=== PATIENT | female | born 1945 ===

== ENCOUNTER 2017-05-30 18:03 | Emergency (ER) | payer MEDICARE, OTHER, BC ==
[2017-05-30 18:11] VITALS: BP 155/87; PULSE 69; RESP 16; TEMP 98; O2SAT 97
--- NOTE | 2017-05-30 18:56 | ED PDOC ---
HPI: Headache Time Seen by Provider: 05/30/17 18:18 Chief Complaint (Nursing): Headache Chief Complaint (Provider): Headache History Per: Patient History/Exam Limitations: no limitations Current Symptoms Are (Timing): Constant Associated Symptoms: denies: Blurred Vision, Nausea, Vomiting Additional History Per: Family Additional Complaint(s): 72 year old female presents to ED with complaints of atraumatic headache x3 days and has a past medical history of HTN, DM, hypercholesterolemia, and hypothyroidism. Localizes pain to the right side of the head and states that it has been constant with no relief by means of Motrin. (-) nausea, vomiting, blurry vision, fever, chills, neck pain, or focal weakness. Accompanying family member states patient has been feeling depressed and stressed, as it was the first anniversary of the of the patient's only son 3 months ago. PCP: Dr. Jayme Bynum Past Medical History Reviewed: Historical Data, Nursing Documentation, Vital Signs Vital Signs: Last Vital Signs Temp 98.0 F 05/30/17 18:11 Pulse 69 05/30/17 18:11 Resp 16 05/30/17 18:11 BP 155/87 H 05/30/17 18:11 Pulse Ox 97 05/30/17 18:11 - Medical History PMH: Diabetes, HTN, Hypercholesterolemia - Surgical History Surgical History: Denies: No Surg Hx Other surgeries: right knee surgery, hysterectomy - Family History Family History: States: No Known Family Hx - Social History Current smoker - smoking cessation education provided: No Ex-Smoker (has not smoked in the last 12 months): No Alcohol: None Drugs: Denies - Home Medications Home Medications: Ambulatory Orders Medication Instructions Recorded Alendronate Sodium [Fosamax] 35 mg PO SUN 12/25/13 Carvedilol 12.5 mg PO BID 12/25/13 Ergocalciferol (Vitamin D2) 50,000 iu PO SUN 12/25/13 [Vitamin D2] Fluticasone Nasal [Flonase] 1 spr NS DAILY 12/25/13 Meclizine Hydrochloride [Meclizine] 50 mg PO BID PRN #30 tab 12/25/13 Ondansetron [Zofran] 4 mg PO Q8H PRN #30 tab 12/25/13 Pravastatin Sodium [Pravastatin] 40 mg PO HS 12/25/13 SITagliptin [Januvia] 100 mg PO DAILY 12/25/13 Oseltamivir [Tamiflu] 75 mg PO BID #10 cap 03/21/16 Acetaminophen [Tylenol Extra 1,000 mg PO Q6 PRN #100 tablet 05/30/17 Strength] Cyclobenzaprine [Flexeril] 5 mg PO Q8 PRN #15 tab 05/30/17 - Allergies Allergies/Adverse Reactions: Allergies Allergy/AdvReac Type Severity Reaction Status Date / Time Penicillins Allergy RASH Verified 03/21/16 19:18 Review of Systems ROS Statement: Except As Marked, All Systems Reviewed And Found Negative Constitutional: Negative for: Fever, Chills Eyes: Negative for: Vision Change Gastrointestinal: Negative for: Nausea, Vomiting Musculoskeletal: Negative for: Neck Pain Neurological: Negative for: Weakness Psych: Positive for: Depression (as per family member) Physical Exam - Reviewed Nursing Documentation Reviewed: Yes Vital Signs Reviewed: Yes - Physical Exam Appears: Positive for: Uncomfortable (mild painful distress) Head Exam: Positive for: ATRAUMATIC, NORMOCEPHALIC Skin: Positive for: Warm, Dry Eye Exam: Positive for: EOMI, PERRL ENT: Negative for: Pharyngeal Erythema, Tonsillar Exudate Neck: Positive for: Painless ROM, Supple Cardiovascular/Chest: Positive for: Regular Rate, Rhythm, Chest Non Tender. Negative for: Murmur Respiratory: Positive for: Normal Breath Sounds. Negative for: Respiratory Distress Gastrointestinal/Abdominal: Positive for: Soft. Negative for: Tenderness Back: Positive for: Normal Inspection. Negative for: Decreased ROM Extremity: Positive for: Normal ROM. Negative for: Deformity Lymphatic: Negative for: Adenopathy Neurologic/Psych: Positive for: Alert, skein yarn dyer II-XII (intact), Oriented (x3), Cerebellar Tests (normal FTN). Negative for: Motor/Sensory Deficits, Aphasia, Facial Droop - Laboratory Results Result Diagrams: 05/30/17 18:56 05/30/17 18:56 - ECG O2 Sat by Pulse Oximetry: 97 (RA) Pulse Ox Interpretation: Normal Medical Decision Making Medical Decision Makin Initial impression: headache DDx including but not limited to: tension headache, temporal arteritis, intracranial mass, hypertensive encephalopathy, migraine, electrolyte abnormality, or stress Initial plan: * T&S * CT HEAD * Labs * CRP, high sensitivity * Magnesium * Phosphorus * UDip * Erythrocyte Sedimentation Rte * PTT/PT * Acetaminophen 975mg PO * Re-eval 2051 CT HEAD FINDINGS Brain: Areas of decreased attenuation noted within the periventricular and subcortical white matter likely related to chronic microangiopathic ischemic changes given the patient's stated age.Streak artifact limits evaluation of the skull base. No evidence of acute intracranial hemorrhage. Correlate clinically. There is mild diffuse cerebral atrophy present, consistent with this patient's age. Ventricles: Unremarkable. No ventriculomegaly. Bones/joints: See above. Soft tissues: Unremarkable. Vasculature: Atherosclerotic calcifications of the carotid siphons. Sinuses: Unremarkable as visualized. No acute sinusitis. Mastoid air cells: Unremarkable as visualized. No mastoid effusion. IMPRESSION: Streak artifact limits evaluation of the skull base. No evidence of acute intracranial hemorrhage. Correlate clinically. Labs reviewed: no clinically significant abnormalities. Patient is stable for discharge home and was advised to follow up with PCP in 2-3 days. Return precautions discussed with patient. Scribe Attestation: Documented by Sania Roberts acting as a scribe for Padmini Guidry MD. Scribe Attestation: All medical record entries made by the Scribe were at my direction and personally dictated by me. I have reviewed the chart and agree that the record accurately reflects my personal performance of the history, physical exam, medical decision making, and the department course for this patient. I have also personally directed, reviewed, and agree with the discharge instructions and disposition. Disposition - Clinical Impression Clinical Impression: Headache Counseled Patient/Family Regarding: Studies Performed, Diagnosis, Need For Followup, Rx Given - Disposition Referrals: Gino Bynum MD [Family Provider] - 06/02/17 ([facility] [facility] 2- [facility]) Disposition: Routine/Home Disposition Time: 21:19 Condition: IMPROVED Prescriptions: Acetaminophen [Tylenol Extra Strength] 1,000 mg PO Q6 PRN #100 tablet PRN Reason: FEVER OR PAIN Cyclobenzaprine [Flexeril] 5 mg PO Q8 PRN #15 tab PRN Reason: Tension Instructions: Headache, Adult (DC) Print Language: TAMAZIGHT
[2017-05-30 19:00] LABS: BASO # 0.1 K/uL (0.0-0.2); BASO % 0.9 % (0.0-2.0); EOS # 0.1 K/uL (0.0-0.7); EOS % 1.4 % (0.0-4.0); HEMOGLOBIN 12.4 g/dL (12.0-16.0); LYMPH # 2.8 K/uL (1.0-4.3); LYMPH % 35.5 % (20.0-40.0); MEAN CORPUSCULAR HEMOGLOBIN 31.2 pg (27.0-31.0); MEAN CORPUSCULAR HGB CONC 33.6 g/dL (33.0-37.0); MEAN PLATELET VOLUME 8.7 fl (7.2-11.7); MONO # 0.6 K/uL (0.0-0.8); MONO % 7.5 % (0.0-10.0); NEUT # 4.3 K/uL (1.8-7.0); NEUT % 54.7 % (50.0-75.0); NRBC % 0.1 % (0.0-0.0); RBC 3.97 Mil/uL (3.80-5.20); RED CELL DISTRIBUTION WIDTH 14.1 % (11.5-14.5); WHITE BLOOD COUNT 7.9 K/uL (4.8-10.8)
[2017-05-30 19:08] LABS: PROTHROMBIN TIME 11.4 Seconds (9.8-13.1)
[2017-05-30 19:14] LABS: ALB/GLOB RATIO 1.2 (1.0-2.1); ALBUMIN 4.1 g/dL (3.5-5.0); ALT/SGPT 34 U/L (9-52); AST/SGOT 26 U/L (14-36); BLOOD UREA NITROGEN 18 mg/dl (7-17); CALCIUM 9.7 mg/dL (8.4-10.2); GFR AFRICAN-AMERICAN > 60; GFR NON-AFRICAN AMERICAN > 60
--- NOTE | 2017-05-31 07:32 | CT ---
PROCEDURE: CT HEAD WITHOUT CONTRAST. HISTORY: headache RIGHT sided COMPARISON: None available. TECHNIQUE: Axial computed tomography images were obtained through the head/brain without intravenous contrast. Radiation dose: Total exam DLP = mGy-cm. This CT exam was performed using one or more of the following dose reduction techniques: Automated exposure control, adjustment of the mA and/or kV according to patient size, and/or use of iterative reconstruction technique. FINDINGS: HEMORRHAGE: No intracranial hemorrhage. BRAIN: No mass effect or edema. No atrophy or chronic microvascular ischemic changes. VENTRICLES: Unremarkable. No hydrocephalus. CALVARIUM: Unremarkable. PARANASAL SINUSES: Unremarkable as visualized. No significant inflammatory changes. MASTOID AIR CELLS: Unremarkable as visualized. No inflammatory changes. OTHER FINDINGS: None. IMPRESSION: Normal CT of the Head.
== END 2017-05-30 21:31 | disposition home or self-care (01) ==
LOC: H.ER 18:03
DX: R51 Headache (principal); E11.9 Type 2 diabetes mellitus without complications; E78.00 Pure hypercholesterolemia, unspecified; I10 Essential (primary) hypertension; Z88.0 Allergy status to penicillin; Z90.710 Acquired absence of both cervix and uterus